=== PATIENT | male | born 2000 | race Caucasian/White ===

== ENCOUNTER 2024-08-02 20:03 | Emergency (ER) | payer BC ==
[~2024-08-02] VITALS: Ht 172.7 cm; Wt 78.0 kg
[2024-08-02 21:27] VITALS: BP 125/85
== END 2024-08-02 21:27 | disposition home or self-care (01) ==
LOC: ED 20:03
DX: S91.311A Laceration without foreign body, right foot, initial encounter (principal); W26.0XXA Contact with knife, initial encounter
CPT/HCPCS: 12001; 99282